=== PATIENT | male | born 1990 | race Caucasian/White ===

== ENCOUNTER 2018-10-04 12:09 | Emergency (ER) | payer MEDICARE, MEDICAID ==
[~2018-10-04] VITALS: Ht 162.6 cm; Wt 81.0 kg
[~2018-10-04 12:09] MED LIST: DIPH50CA4 PO; HALO5TAB PO
--- NOTE | 2018-10-04 12:50 | NUR ---
MOTHER STATES IN TRIAGE ASSESSMENT THAT THIS MORNING PT REPORTED THAT HE DIDN'T WANT TO LIVE ANYMORE WITH HIS HEALTH THE WAY THAT IT IS.
[2018-10-04] MEDS ORDERED: LORazepam 2 mg/ml vial IV ONE (12:55)
[2018-10-04 12:56] LABS: BASOPHILS % (AUTO) 0.5 % (0-1); EOSINOPHILS # (AUTO) 0.1 X10'3 (0-0.9); EOSINOPHILS % (AUTO) 0.8 % (0-6); HEMATOCRIT 45.2 % (42.0-52.0); HEMOGLOBIN 15.6 g/dl (14.0-17.9); LYMPHOCYTES # (AUTO) 1.7 X10'3 (1.1-4.8); LYMPHOCYTES % (AUTO) 16.2 % (21-51); MEAN CORPUSCULAR HEMOGLOBIN 30.2 PG (27.0-31.0); MEAN CORPUSCULAR HGB CONC 34.5 g/dL (33.0-36.5); MEAN CORPUSCULAR VOLUME 87.3 FL (78-98); MEAN PLATELET VOLUME 8.1 FL (7.4-10.4); MONOCYTES # (AUTO) 0.5 X10'3 (0-0.9); MONOCYTES % (AUTO) 4.8 % (2-12); NEUTROPHILS # (AUTO) 8.4 X10'3 (1.8-7.7); NEUTROPHILS % (AUTO) 77.7 % (42-75); PLATELET COUNT 319 X10'3 (140-440); RED BLOOD COUNT 5.17 X10'6 (4.70-6.10); WHITE BLOOD COUNT 10.7 X10'3 (4.5-11.0)
[2018-10-04 13:14] LABS: ALANINE AMINOTRANSFERASE 102 U/L (12-78); ALBUMIN 3.9 G/DL (3.4-5.0); ALKALINE PHOSPHATASE 135 IU/L (46-116); ANION GAP 10 (8-16); ASPARTATE AMINO TRANSFERASE 24 U/L (10-37); BILIRUBIN,TOTAL 0.4 MG/DL (0.1-1.0); BLOOD UREA NITROGEN 10 MG/DL (7-18); CALCIUM 9.2 MG/DL (8.5-10.1); CHLORIDE 103 MMOL/L (99-107); CREATININE 0.77 MG/DL (0.60-1.10); ETHANOL < 0.010 GM/DL (0.0-0.010); GLUCOSE 101 MG/DL (70-104); POTASSIUM 3.8 MMOL/L (3.5-5.1); SODIUM 138 MMOL/L (135-145); TOTAL PROTEIN 7.9 G/DL (6.4-8.2); eGFR > 90 ML/MIN
--- NOTE | 2018-10-04 14:33 | NUR ---
MOTHER AT BEDSIDE, PER MOTHER PT IS FEELING LOT BETTER THAN BEFORE ,PT TALKING AND CALM ,NO TREMORS OR STIFFINESS NOTED, PER PT ATIVAN HELPED HIM,PT WAS NOT ABLE TO SLEEP LAST NIGHT THAT WHY WAS NEYMAR RESTLESS PER MOTHER ,NOW RELAXED.
[2018-10-04 14:36] VITALS: BP 128/83
[2018-10-04 15:11] LABS: URINE AMPHETAMINE SCREEN NEGATIVE (Neg); URINE BARBITUATE SCREEN NEGATIVE (Neg); URINE BENZODIAZEPINES SCREEN NEGATIVE (Neg); URINE CANNABINOID SCREEN POSITIVE (Neg); URINE COCAINE SCREEN NEGATIVE (Neg); URINE METHADONE SCREEN NEGATIVE (Neg); URINE OPIATE SCREEN NEGATIVE (Neg); URINE PHENCYCLIDINE SCREEN NEGATIVE (Neg)
== END 2018-10-04 15:35 | disposition home or self-care (01) ==
LOC: ER 12:09
DX: R45.851 Suicidal ideations (principal); R56.9 Unspecified convulsions; Z88.0 Allergy status to penicillin; Z79.899 Other long term (current) drug therapy
CPT/HCPCS: 36415; 80053; 80305; 80320; 85025; 96374; 99284; J2060

== ENCOUNTER 2018-10-04 15:13 | Inpatient (IN) | payer MEDICARE, MEDICAID ==
[~2018-10-04] VITALS: Ht 162.6 cm; Wt 83.9 kg
[~2018-10-04 15:13] MED LIST changes: +DIPH50CA39 PO; -DIPH50CA4 PO
--- NOTE | 2018-10-04 17:00 | NUR ---
ADMIT NOTE Patient presented to the ER with C/O suicidal thoughts. Pt had recent hospitalization at [facility] for 5 days. Pt admitted on voluntary status for DTS. Pt's belongings inventoried, checked for safety, 2 RN skin assessment completed. No TB test needed, as was completed recently. Pt already oriented to unit.
[2018-10-04 17:15] VITALS: BP 132/92
[2018-10-04] MEDS ORDERED: hydrOXYzine 25 MG tablet PO PRN (17:35)
[2018-10-04] MEDS ORDERED: loperamide 2mg capsule PO PRN (17:35)
[2018-10-04] MEDS ORDERED: tuberculin, purif. prot. deriv. 5 units/0.1ml ID ONE (17:35)
[2018-10-04] MEDS ORDERED: magnesium hydroxide 30ml (MOM) UD suspension PO PRN (17:35)
[2018-10-04] MEDS ORDERED: LORazepam 1 MG tablet PO PRN (17:35)
[2018-10-04] MEDS ORDERED: mag hydrox/Alum hydrox/simeth 30ml oral suspension PO PRN (17:35)
[2018-10-04] MEDS ORDERED: acetaminophen 325mg tablet PO PRN ×2 (17:35)
--- NOTE | 2018-10-04 17:40 | NUR ---
Patient ate dinner. Visits others in the community room.
[2018-10-04 20:00] VITALS: BP 135/98
--- NOTE | 2018-10-04 21:00 | NUR ---
Patient is cooperative with staff. He went to patio with other patients and ate snacks. There was social interaction between this patient and others.
--- NOTE | 2018-10-05 02:07 | NUR ---
Nursing Progress Note:[] Legal hold: DTS/VOL Client on voluntary/involuntary status for DTS Report received from STEPHANIE Rahman, with use of SBAR. Why are they here: Suicidal Ideation, no plan. Depression. Assessment: What has happened this shift: This patient is ambulatory following shift change. When interviewed in hi room he tells this typewriter repairer "I'm having weird pseudo convulsions, like my muscles are tense all over, it's not real." Patient describes coming home from his last Behavioral Health admit. "I had a complete breakdown when I got home, I wasn't ready to go home." The patient denies hallucinations, he does admit that he thought he saw his older brother here, (his brother is in longterm,) but it turned out to be someone from the pharmacy. This patient exhibits anxiety. His affect is flat. He admits to minor depression, suicidal ideation is present without a plan. Patient states he would like sleep medications. The patient is advised that he is in a safe place. Q15 minute rounding will be done for patient safety. S/I, H/I: Intermittent S/I, no plan. Denies H/I. A/VH: Believes he saw his brother here until he realized it was someone from the pharmacy. Sleep: Patient states not sleeping well. ADL's: Independent. Group attendance: Not on nights. Were med's taken: Patient is medication compliant. Any med S/E: None. Mental Status Exam Appearance: Disheveled. Eye contact: Direct. Behavior: Friendly and cooperative. Speech: Normal rate and tone. Mood: Depression and anxiety. Affect: Blunted Thought process: Coherent Thought Content: S/I at times. Cognition: Poor Insight: Poor Judgment:Poor Interventions: PRN's used: Ativan at 2345 hours. Therapeutic interventions: Restraints/seclusion/emergency medication:None Justification of Continued Inpatient Treatment:Suicidal Ideation, Danger to self.
--- NOTE | 2018-10-05 03:28 | NUR ---
Patient is awake and agitated. He paces hallways and exhibits rapid speech. Patient states he is allergic to benadryl but needs something else to sleep. Patient also demands a meal. Patient was advised by this proposal writer that the doctor would be called to request another sleep medication. He was also told that meals are not offered at this hour. Patient told this proposal writer "fuck you then!!" He then stormed off. Addendum: 10/05/18 at 0332 by Jamal Maldonado RN This was an incorrect documentation on this patient. It was meant for another patient. Please disregard.
[2018-10-05 07:43] VITALS: BP 122/75
[2018-10-05 08:44] LABS: CHOL/HDL RATIO 3.1 (0.00-4.99); CHOLESTEROL 88 MG/DL (0-200); HDL CHOLESTEROL 28 MG/DL (35-60); LDL CHOLESTEROL 39 MG/DL (50-100); TRIGLYCERIDES 131 MG/DL (20-135)
[2018-10-05] MEDS ORDERED: hydrOXYzine 25 MG tablet PO PRN (12:10)
--- NOTE | 2018-10-05 17:07 | NUR ---
Nursing Progress Note: Legal hold: DTS/VOL Client on voluntary/involuntary status for DTS Report received from Deanne Lee RN, with use of SBAR. Why are they here: Suicidal Ideation, no plan. Depression. Assessment: What has happened this shift: Patient up in visible on the unit. Patient spent much of the day pacing. Patient did attend meals and both groups. Patients mother visited this morning and he was happy to see her and they visited well until visiting hours were over. Mother concerned related to medication compliance when patient gets home. She did state that she discussed this with Dr Garrett. In the morning patient complained of feeling like rotting flesh all night he said he felt like pain was all over his body and that it may be from detoxing from things. Patient did seem to be happier after his mother visited and remain visible on the unit the rest of the day. Patient currently denies suicidal thoughts and says he feels his depression is about the same. He says he feel safe here. S/I, H/I: Intermittent S/I, no plan. Denies H/I. A/VH: Believes he saw his brother here until he realized it was someone from the pharmacy. Sleep: Patient states not sleeping well. ADL's: Independent. Group attendance: Not on nights. Were med's taken: Patient is medication compliant. Any med S/E: None. Mental Status Exam Appearance: Disheveled. Eye contact: Direct. Behavior: Friendly and cooperative. Speech: Normal rate and tone. Mood: Depression and anxiety. Affect: Blunted Thought process: Coherent Thought Content: S/I at times. Cognition: Poor Insight: Poor Judgment:Poor Interventions: PRN's used: Therapeutic interventions: Restraints/seclusion/emergency medication:None Justification of Continued Inpatient Treatment:Suicidal Ideation, Danger to self.
[2018-10-05 20:00] VITALS: BP 127/86
[2018-10-05] MEDS: LORazepam 1 MG tablet PO SCH (21:00)
--- NOTE | 2018-10-06 00:56 | NUR ---
Nursing Progress Note: Legal hold: DTS/VOL Client on voluntary/involuntary status for DTS Report received from STEPHANIE Rahman, with use of SBAR. Why are they here: Suicidal Ideation, no plan. Depression. Assessment: What has happened this shift: This patient is pacing the halls after shift change. He is awake and well oriented. He tells this lead technical writer "I'm feeling alright. Patient qualifies that statement with "I'm afraid to fall asleep, I could have a seizure or pain, I can't describe it, what I mean?" The patient is advised that we can use ativan and other medications tonight to help him be comfortable. The patient exhibits understanding and looks relieved. The patient somewhat isolates himself at times. He did join the group in the community room for ice cream. As of the time of this writing the patient is sleeping quietly. Q 15 minute rounding is being provided for patient safety. S/I, H/I: Patient denies at this time. . A/VH: Patient denies at this time. Sleep: Patient is sleeping well at the time of this writing. ADL's: Independent. Group attendance: Not on nights. Were med's taken: Patient is medication compliant. Any med S/E: None. Mental Status Exam Appearance: Disheveled. Eye contact: Direct. Behavior: Friendly and cooperative. Speech: Normal rate and tone. Mood: Depression and anxiety are waning. Affect: Blunted Thought process: Coherent Thought Content: Minor paranoia about his health. Cognition: Poor Insight: Poor Judgment:Poor Interventions: PRN's used: Therapeutic interventions: Restraints/seclusion/emergency medication:None Justification of Continued Inpatient Treatment:Suicidal Ideation, Danger to self.
[2018-10-06 08:00] VITALS: BP 130/86
--- NOTE | 2018-10-06 11:48 | NUR ---
Nursing Progress Note: Legal hold: N/A Client on voluntary status Report received from KALEIGH Weeks, with use of SBAR. Why are they here: Suicidal Ideation, no plan. Depression. Pt was recently here and discharged home on 10/03/18. He returned to the ER the next day and was readmitted for SI, pt reported he had a "complete breakdown" when he got home. Assessment: What has happened this shift: Pt stated he was having headache pain at a 4/10 before breakfast but refused prn Tylenol. Pt denies depression, anxiety, SI/HI/AH/VH though appears depressed. Pt reported not sleeping well last night though was not able to state why. Pt observed pacing in the rush or sitting in the rec room, walks around with slow measured steps and a flat facial affect, he is frequently out in the milieu though does not interact with peers, minimal interaction with staff. Pt had no scheduled am meds, per notes, psychiatrist plans to start him on an antidepressant. S/I, H/I: Pt denies A/VH: Pt denies Sleep: Slept 7 hours last night per noc shift documentation ADL's: Independent Group attendance: Yes Were med's taken: No meds scheduled or given this shift, refused prn Tylenol for headache Any med S/E: None noted or reported Mental Status Exam Appearance: Clean, dressed in scrubs Eye contact: Good Behavior: Quiet, paces in rush, sits in rec room, mostly isolative to self Speech: clear, audible, poverty of speech Mood: Apathetic Affect: Flat Thought process: linear Thought Content: poverty of thought Cognition: A/O X 4 Insight: Poor Judgment:Poor Interventions: PRN's used: None Therapeutic interventions: 1:1 assessment, encouragement to express thoughts and feelings, encouragement to attend groups, monitor for s/sx of reported somatic/psychosomatic complaints though none reported so far this shift. Restraints/seclusion/emergency medication: None Justification of Continued Inpatient Treatment: Pt was readmitted one day after recent discharge for c/o depression and SI. He has complained about bizarre somatic sensations and pseudo-convulsions. He needs stabilization and medication adjustments for increased chance of not being readmitted again once discharged.
[2018-10-06 19:57] VITALS: BP 136/94
[2018-10-06] MEDS: LORazepam 1 MG tablet PO SCH (20:37)
--- NOTE | 2018-10-07 01:20 | NUR ---
Nursing Progress Note: Legal hold: DTS/VOL Client on voluntary/involuntary status for DTS Report received from STEPHANIE Rahman, with use of SBAR. Why are they here: Suicidal Ideation, no plan. Depression. Assessment: What has happened this shift: The patient was seen in his room for 1:1 at his bedside. He reports that he came back because he wasn't ready. "I was reverting to like before I was here...No, I was beyond reverting, I needed help." The patient states that he has social anxiety, and tends to isolate himself. "I have no friends...physically...I mean I have online friends, but that's different." The patient says he knows he has problems, just not how to solve them. "I just want to try and figure out how to live a normal life with mental illness." The patient spent the evening in his room, came out for a snack, then went back to his room. S/I, H/I: Denies A/VH: Denies Sleep: Sleeping since HS med pass. ADL's: Independent. Group attendance: No groups at night. Were med's taken: Patient is medication compliant. Any med S/E: None. Mental Status Exam Appearance: Disheveled, wearing street clothes. Eye contact: Direct. Behavior: Friendly but isolative Speech: Normal rate and tone. Mood: "Pretty good now.". Affect: Blunted Thought process: Logical, linear, goal directed. Thought Content: Minor paranoia about his health. Cognition: Poor Insight: Poor Judgment:Poor Interventions: PRN's used: Therapeutic interventions: Restraints/seclusion/emergency medication:None Justification of Continued Inpatient Treatment:Suicidal Ideation, Danger to self.
[2018-10-07 08:00] VITALS: BP 123/83
--- NOTE | 2018-10-07 09:08 | NUR ---
behavioral technician is here performing EEG in pt's room.
--- NOTE | 2018-10-07 12:13 | NUR ---
Nursing Progress Note: Legal hold: N/A Client on voluntary status Report received from Jose BROWN, with use of SBAR. Why are they here: Suicidal Ideation, no plan. Depression. Pt was recently here and discharged home on 10/03/18. He returned to the ER the next day and was readmitted for SI, pt reported he had a "complete breakdown" when he got home. Assessment: What has happened this shift: Pt presented as brighter and more friendly today. He denied depression, anxiety, SI/HI/AH/VH. Pt did report having difficulty falling asleep and staying asleep. Pt went on to explain that he is a light sleeper anyway and usually sleeps with a fan on for white noise but that his sleep patterns have changed since his recent SA via OD. Pt states, "I don't know how to describe it, it's like I'm resting but my brain..." (Pt trailed off and stopped talking with a confused look on his face.) Prompted pt by asking if his brain keeps going. Pt replied, "yeah." Pt is involved in his treatment plan. He verbalized that he was to have an EEG this morning and then his psychiatrist would decide what further medication to prescribe for him which may possibly be an antidepressant. EEG was done this morning, results pending. S/I, H/I: Pt denies A/VH: Pt denies Sleep: pt reported having difficulty sleeping last night ADL's: Independent Group attendance: Yes Were med's taken: No meds scheduled, no prns given this morning. Any med S/E: None noted or reported Mental Status Exam Appearance: Clean, dressed in scrubs Eye contact: Good Behavior: Cooperative, participates in groups and unit activities, friendly with staff but minimal interaction or socialization with peers Speech: clear, audible, normal rate Mood: good Affect: blunted until spoken to then brightens Thought process: linear Thought Content: Pt focused on treatment plan, EEG this morning and medication adjustment Cognition: A/O X 4 Insight: Fair Judgment:Poor Interventions: PRN's used: None Therapeutic interventions: 1:1 assessment, establishment of rapport, therapeutic conversation, discussion of plan of care, positive reinforcement, Q 15 min safety checks Restraints/seclusion/emergency medication: None Justification of Continued Inpatient Treatment: Pt was readmitted one day after recent discharge for c/o depression and SI. He has complained about bizarre somatic sensations and pseudo-convulsions. He needs stabilization and medication adjustments for increased chance of not being readmitted again once discharged. Addendum: 10/07/18 at 1500 by Brittany "Timo" Woodman BROWN Pt reported not feeling well around 1445 during afternoon group. He states he got dizzy and felt like he was going to pass out. He returned to his room to lie down. VSS.
[2018-10-07 14:56] VITALS: BP 128/79
[2018-10-07] MEDS ORDERED: sertraline 25mg tablet PO ONE (18:00)
[2018-10-07] MEDS: LORazepam 1 MG tablet PO SCH (20:26)
[2018-10-07 20:38] VITALS: BP 115/78
--- NOTE | 2018-10-08 00:28 | NUR ---
Nursing Progress Note: Legal hold: DTS/VOL Client on voluntary status for DTS Report received from STEPHANIE Rahman, with use of SBAR. Why are they here: Suicidal Ideation, no plan. Depression. Assessment: What has happened this shift: The patient was seen in his room at bedside for 1:1. He reports that he had an EEG today, but will get results tomorrow. He says he will accept any recommendations, possibly a mood stabilizer. He also reports that he started Zoloft today. "I don't know if it's related, but I had a strange occurrence in art group today. I had a bout of dizziness, but it went away." The patient says that things are going well, and his mood is "pretty good." He had a visit from his mother that appeared to go well. He does continue to isolate himself, but is coming out of his room more. He just doesn't interact with others. The patient was compliant with medication after his mother left, then went to bed. He continues to sleep. S/I, H/I: Denies A/VH: Denies Sleep: Sleeping since HS med pass. ADL's: Independent. Group attendance: No groups at night. Were med's taken: Patient is medication compliant. Any med S/E: None. Mental Status Exam Appearance: Disheveled, short young man wearing street clothes. Eye contact: Direct. Behavior: Friendly but isolative Speech: Normal rate and tone. Mood: "Pretty good." Affect: Blunted Thought process: Logical, linear, goal directed. Thought Content: Minor paranoia about his health. Cognition: Poor Insight: Poor Judgment:Poor Interventions: PRN's used: Therapeutic interventions: 1:1 assessment, establishment of rapport, therapeutic conversation, discussion of plan of care, positive reinforcement, Q 15 min safety checks Restraints/seclusion/emergency medication: None Justification of Continued Inpatient Treatment: Pt was readmitted one day after recent discharge for c/o depression and SI. He has complained about bizarre somatic sensations and pseudo-convulsions. He needs stabilization and medication adjustments for increased chance of not being readmitted again once discharged.
[2018-10-08] MEDS: sertraline 50mg tablet PO SCH (07:20)
[2018-10-08 08:14] VITALS: BP 115/85
--- NOTE | 2018-10-08 15:50 | NUR ---
Nursing Progress Note: [place] Legal hold: DTS/VOL Client on voluntary status for DTS Report received from STEPHANIE Rahman, with use of SBAR. Why are they here: Suicidal Ideation, no plan. Depression. Assessment: What has happened this shift: Patient observed in hallway at shift change. States minimal anxiety, compliant with med pass. 1:1 physical and MH assessment completed. Had a nice visit with his mother prior to group. Remained isolated most of day. Did attend groups. S/I, H/I: Denies A/VH: Denies Sleep: Sleeping since HS med pass. ADL's: Independent. Group attendance: Yes Were med's taken: Patient is medication compliant. Any med S/E: None. Mental Status Exam Appearance: Disheveled, short young man wearing street clothes. Eye contact: Direct. Behavior: Friendly but isolative Speech: Normal rate and tone. Mood: "Pretty good." Affect: Blunted Thought process: Logical, linear, goal directed. Thought Content: Minor paranoia about his health. Cognition: Poor Insight: Poor Judgment:Poor Interventions: PRN's used: Therapeutic interventions: 1:1 assessment, establishment of rapport, therapeutic conversation, discussion of plan of care, positive reinforcement, Q 15 min safety checks Restraints/seclusion/emergency medication: None Justification of Continued Inpatient Treatment: Pt was readmitted one day after recent discharge for c/o depression and SI. He has complained about bizarre somatic sensations and pseudo-convulsions. He needs stabilization and medication adjustments for increased chance of not being readmitted again once discharged.
[2018-10-08] MEDS: LORazepam 1 MG tablet PO SCH (20:23)
[2018-10-08 20:49] VITALS: BP 123/84
--- NOTE | 2018-10-09 00:32 | NUR ---
Nursing Progress Note: Legal hold: DTS/VOL Client on voluntary status for DTS Report received from STEPHANIE Rahman, with use of SBAR. Why are they here: Suicidal Ideation, no plan. Depression. Assessment: What has happened this shift: The patient was seen in his room at bedside for 1:1. He reports having a "so-so" day that was spent in his room. "I tried to do groups, but I was feeling antisocial...not antisocial, but I can't explain...I just didn't feel like being around people today." The patient got his EEG results today, but did not talk about it. The patient made no c/o anxiety, and remained isolated to his room all night. S/I, H/I: Denies A/VH: Denies Sleep: Sleeping since HS med pass. ADL's: Independent. Group attendance: No groups at night. Were med's taken: Patient is medication compliant. Any med S/E: None. Mental Status Exam Appearance: Disheveled, short young man wearing street clothes. Eye contact: Direct. Behavior: Friendly but isolative Speech: Normal rate and tone. Mood: "So-so." Affect: Blunted Thought process: Logical, linear, goal directed. Thought Content: Minor paranoia about his health. Cognition: Poor Insight: Poor Judgment:Poor Interventions: PRN's used: Therapeutic interventions: 1:1 assessment, establishment of rapport, therapeutic conversation, discussion of plan of care, positive reinforcement, Q 15 min safety checks Restraints/seclusion/emergency medication: None Justification of Continued Inpatient Treatment: Pt was readmitted one day after recent discharge for c/o depression and SI. He has complained about bizarre somatic sensations and pseudo-convulsions. He needs stabilization and medication adjustments for increased chance of not being readmitted again once discharged.
[2018-10-09 07:31] VITALS: BP 127/90
[2018-10-09] MEDS: sertraline 50mg tablet PO SCH (08:05)
--- NOTE | 2018-10-09 11:44 | NUR ---
Nursing Progress Note: Legal hold: N/A Client on voluntary status Report received from Chika BROWN, with use of SBAR. Why are they here: Suicidal Ideation, no plan. Depression. Pt was recently here and discharged home on 10/03/18. He returned to the ER the next day and was readmitted for SI, pt reported he had a "complete breakdown" when he got home. Assessment: What has happened this shift: Pt up for breakfast. Pt cooperative with scheduled Zoloft, no adverse effects reported. Pt denied depression, anxiety, SI/HI/AH/VH. When asked pt if he had been having any s/sx of seizure disorder he stated that he felt "funny" last night. Asked him to describe what he meant by feeling funny. Pt paused, appeared to be searching for the right words but then gave up and stated, "I don't know." Asked him if he was having any body movements he could not control or if he seemed to have lost track of time. Pt shook his head, "no" and continued to be unable to elaborate on how he felt funny. Pt is aware of EEG results and of his psychiatrist's plan to start him on an antiepileptic which may also help with mood, possibly Trileptal. He is agreeable to staying here while meds being adjusted. S/I, H/I: Pt denies A/VH: Pt denies Sleep: Slept 7.75 hours per noc shift report ADL's: Independent Group attendance: Yes Were med's taken: Yes Any med S/E: None noted or reported Mental Status Exam Appearance: Clean, wears glasses, dressed in clean scrubs Eye contact: Good Behavior: Calm, cooperative, quiet, isolative to self Speech: clear, audible, normal rate Mood: Denies alteration in mood Affect: blunted until spoken to then brightens Thought process: linear Thought Content: Pt agreeable to staying longer for further medication adjustment and monitoring. Cognition: A/O X 4 Insight: Fair Judgment: Fair Interventions: PRN's used: None Therapeutic interventions: 1:1 assessment, therapeutic conversation, discussion of plan of care, encouragement to attend groups, positive reinforcement, Q 15 min safety checks Restraints/seclusion/emergency medication: None Justification of Continued Inpatient Treatment: Pt was readmitted one day after recent discharge for c/o depression and SI. He has complained about bizarre somatic sensations and pseudo-convulsions, his EEG may be indicative of some seizure activity. He needs medication adjustments for stabilization and increased chance of not being readmitted again once discharged.
--- NOTE | 2018-10-09 11:49 | NUR ---
Initial: Pt admit w/ depression PO 100% regular meals meeting needs. LBM 10/09. No nutrition concerns at this time. Addendum: 10/09/18 at [address] Amended: Links added.
[2018-10-09 20:00] VITALS: BP 125/77
[2018-10-09] MEDS: LORazepam 1 MG tablet PO SCH (21:15)
[2018-10-09] MEDS: oxcarbazepine 150mg tablet PO SCH (21:15)
--- NOTE | 2018-10-10 03:18 | NUR ---
Nursing Progress Note: Legal hold: Voluntary Client on voluntary DTS Report received from nurse with use of SBAR: STEPHANIE Fuentes Why are they here: Pt. readmitted after reporting suicidal ideation, no plan, and depression. Pt was recently here for a suicide attempt, ingesting alcohol and butane, and discharged home on 10/03/18. He returned to the ER the next day and reported he had a "complete breakdown" when he got home. Pt. also may have had some seizure activity. Assessment What has happened this shift: Pt. up in the Group Room at the beginning of the shift with a visitor, visit appeared to go well. However, following the visit, pt. retreats to his own room and presents as withdrawn and guarded. 1:1 completed at bedside, pt. is A&O X3, not to which hospital he is at. He denies S/I, and states that his depression is a little better, "I am still working on it." Pt's speech is soft, some latency in response, and he responds only minimally to questions. He apologizes to this keno writer / runner during the assessment, states, "Sorry, I guess I am just weird." This keno writer / runner provides positive encouragement to pt, and he reports content. No s/s of seizure activity this shift, will continue to monitor. S/I, H/I: Denies A/VH: Denies Sleep: Appears to be sleeping well, pt. reports he is unsure of how well he sleeps ADL's: Requires encouragement from staff. Group attendance: Pt. reports he attends groups, and "Tries to participate." Were meds taken: Yes Any med S/E: No Mental Status Exam Appearance: Neat and appropriately dressed in hospital attire Eye contact: Fair Behavior: Cooperative, guarded, and withdrawn Speech: Pt's speech is soft, some latency in response, and he responds only minimally to questions Mood: Depressed, apologetic Affect: Flat Thought process: Poverty of thought and blocking Thought Content: Preoccupation with depressed mood and anxiety Cognition: A&O x3 (not to hospital) Insight: Poor Judgment: Fair Interventions PRN's used: None Therapeutic interventions: Introduced self and established rapport, maintained a safe and therapeutic environment, ensured contract for safety, observed for changes in behavior and need for intervention, encouraged independent performance of ADLs, provided positive encouragement, and maintained Q 15 min safety checks. Restraints/seclusion/emergency medication: N/A Justification of Continued Inpatient Treatment: Pt. continues to require stabilization, medication adjustments, and a safe and therapeutic environment.
[2018-10-10] MEDS: oxcarbazepine 150mg tablet PO SCH ×2 (07:22→20:53)
[2018-10-10] MEDS: sertraline 50mg tablet PO SCH (07:22)
[2018-10-10 09:20] VITALS: BP 131/81
--- NOTE | 2018-10-10 16:57 | NUR ---
Nursing Progress Note: Legal hold: N/A Client on voluntary status Report received from Chika BROWN, with use of SBAR. Why are they here: Suicidal Ideation, no plan. Depression. Pt was recently here and discharged home on 10/03/18. He returned to the ER the next day and was readmitted for SI, pt reported he had a "complete breakdown" when he got home. Assessment: What has happened this shift: Received Pt sleeping in bed w/o distress at change of shift. Pt up for breakfast. Pt cooperative with AM meds and no adverse effects reported. Pt denied depression, anxiety, SI/HI/AH/VH. He apologized for his behavior the last time he was here. Did not report any funny feelings, as he did yesterday. Isolates to room and occasionally walks the halls. Attends groups and meals and tolerates being around others but does not appear to be comfortable socially. S/I, H/I: Pt denies A/VH: Pt denies Sleep: Appeared to nap at times ADL's: Independent Group attendance: Yes Were med's taken: Yes Any med S/E: None noted or reported Mental Status Exam Appearance: Clean, wears glasses, dressed in clean scrubs Eye contact: Good Behavior: Calm, cooperative, quiet, isolative to self Speech: clear, audible, normal rate Mood: Denies alteration in mood Affect: blunted until spoken to then brightens Thought process: linear Thought Content: Pt agreeable to staying longer for further medication adjustment and monitoring. Cognition: A/O X 4 Insight: Fair Judgment: Fair Interventions: PRN's used: None Therapeutic interventions: 1:1 assessment, therapeutic conversation, discussion of plan of care, encouragement to attend groups, positive reinforcement, Q 15 min safety checks Restraints/seclusion/emergency medication: None Justification of Continued Inpatient Treatment: Pt was readmitted one day after recent discharge for c/o depression and SI. He has complained about bizarre somatic sensations and pseudo-convulsions, his EEG may be indicative of some seizure activity. He needs medication adjustments for stabilization and increased chance of not being readmitted again once discharged.
[2018-10-10 19:49] VITALS: BP 129/80
[2018-10-10] MEDS: LORazepam 1 MG tablet PO SCH (20:53)
--- NOTE | 2018-10-10 23:00 | NUR ---
Nursing Progress Note: Legal hold: Voluntary Client on voluntary DTS Report received from nurse with use of SBAR: STEPHANIE Hilton Why are they here: Pt. readmitted after reporting suicidal ideation, no plan, and depression. Pt was recently here for a suicide attempt, ingesting alcohol and butane, and discharged home on 10/03/18. He returned to the ER the next day and reported he had a "complete breakdown" when he got home. Pt. also may have had some seizure activity. Assessment What has happened this shift: Pt. up in the Group Room at the beginning of the shift, then isolating in his room for the remainder of the shift. 1:1 completed at bedside, pt. continues to deny S/I, and states that his depression is a little better. He feels that the medications are helping, however they are causing him more drowsiness, will endorse to AM shift and continue to monitor. Pt's continues to respond minimally to questions and has a flat affect, when this ad copy writer questioned pt. in regard to this, pt. admits that he does not like social situations, both in groups and 1:1. He also states, "The medications make me feel robotic." This ad copy writer again provided positive encouragement to pt, and he reports that he has been working on cognitive behavioral therapy with Dr. Garrett. No s/s of seizure activity this shift, will continue to monitor. S/I, H/I: Denies A/VH: Denies Sleep: Reports he has been sleeping well ADL's: Requires encouragement from staff. Group attendance: Pt. reports he attends groups, and "Tries to participate," but admits that he does not like social settings. Were meds taken: Yes Any med S/E: Increased fatigue and feeling, "Robotic." Mental Status Exam Appearance: Neat and appropriately dressed in hospital attire Eye contact: Fair Behavior: Cooperative, guarded, and withdrawn Speech: Pt's speech is soft, some latency in response, and he responds only minimally to questions Mood: Depressed, slightly anxious Affect: Flat Thought process: Poverty of thought and blocking Thought Content: Preoccupation with depressed mood and social anxiety Cognition: A&O Insight: Poor to fair Judgment: Fair Interventions PRN's used: None Therapeutic interventions: Maintained a safe and therapeutic environment, ensured contract for safety, observed for changes in behavior and need for intervention, encouraged independent performance of ADLs, provided positive encouragement, and maintained Q 15 min safety checks. Restraints/seclusion/emergency medication: N/A Justification of Continued Inpatient Treatment: Pt. continues to require stabilization, medication adjustments, and a safe and therapeutic environment.
[2018-10-11 08:09] VITALS: BP 125/88
[2018-10-11] MEDS: oxcarbazepine 150mg tablet PO SCH ×2 (08:28→21:20)
[2018-10-11] MEDS: sertraline 50mg tablet PO SCH (08:28)
--- NOTE | 2018-10-11 17:42 | NUR ---
Nursing Progress Note: Legal hold: N/A Client on voluntary status Report received from KALEIGH Szymanski with use of SBAR. Why are they here: Suicidal Ideation, no plan. Depression. Pt was recently here and discharged home on 10/03/18. He returned to the ER the next day and was readmitted for SI, pt reported he had a "complete breakdown" when he got home. Assessment: What has happened this shift: Pt up and smiling pacing the halls. He is quiet, calm and cooperative. He denies SI today. He denies A/H. Isolates to room. S/I, H/I: Pt denies A/VH: Pt denies Sleep: Appeared to nap at times ADL's: Independent Group attendance: Yes Were med's taken: Yes Any med S/E: None noted or reported Mental Status Exam Appearance: Clean, well groomed Eye contact: Good Behavior: Calm, cooperative, quiet Speech: clear, normal rate and rhythm Mood: Calm Affect: blunted until spoken to then brightens Thought process: linear Thought Content: Pt agreeable to staying longer for further medication adjustment and monitoring. Cognition: A/O X 4 Insight: Fair Judgment: Fair Interventions: PRN's used: None Therapeutic interventions: 1:1 assessment, provided therapeutic communication with active listening, medication administration/monitoring/education, encouragement to perform self care/personal hygiene and attend groups, Q 15 min safety checks. Restraints/seclusion/emergency medication: None Justification of Continued Inpatient Treatment: Pt was readmitted one day after recent discharge for c/o depression and SI. He has complained about bizarre somatic sensations and pseudo-convulsions, his EEG may be indicative of some seizure activity. He needs medication adjustments for stabilization and increased chance of not being readmitted again once discharged.
[2018-10-11 20:00] VITALS: BP 117/84
[2018-10-11] MEDS: LORazepam 1 MG tablet PO SCH (21:19)
--- NOTE | 2018-10-11 23:23 | NUR ---
Nursing Progress Note: Legal hold: Voluntary Client on voluntary DTS Report received from nurse with use of SBAR: STEPHANIE Hilton Why are they here: Pt. readmitted after reporting suicidal ideation, no plan, and depression. Pt was recently here for a suicide attempt, ingesting alcohol and butane, and discharged home on 10/03/18. He returned to the ER the next day and reported he had a "complete breakdown" when he got home. Pt. also may have had some seizure activity. Assessment What has happened this shift: Pt. up and visible on the unit throughout most of the shift, smiling and interacting minimally with staff. He later attends HS snack on the outside patio area. 1:1 completed at bedside, pt. continues to be cooperative and guarded with conversation, however presents as less withdrawn. He continues to deny S/I, and states, "My mood is pretty good." No c/o increased drowsiness from medications this shift, will continue to monitor. This designer writer provided positive reinforcement to pt. r/t being more active on the unit, pt. smiled and reported content. No s/s of seizure activity this shift, will continue to monitor. S/I, H/I: Denies A/VH: Denies Sleep: Reports he has been sleeping well ADL's: Requires some encouragement from staff. Group attendance: Pt. attended groups today Were meds taken: Yes Any med S/E: None Mental Status Exam Appearance: Neat and appropriately dressed in hospital attire Eye contact: Fair Behavior: Cooperative and guarded with conversation, however presents as less withdrawn Speech: Pt's speech is soft, some latency in response, and he responds only minimally to questions Mood: Presents as more animated, however anxious at times and guarded Affect: Flat, however animates with conversation Thought process: Poverty of thought and blocking Thought Content: Preoccupation with depressed mood and social anxiety Cognition: A&O Insight: Poor to fair Judgment: Fair Interventions PRN's used: None Therapeutic interventions: Maintained a safe and therapeutic environment, ensured contract for safety, observed for changes in behavior and need for intervention, encouraged independent performance of ADLs, provided positive encouragement, and maintained Q 15 min safety checks. Restraints/seclusion/emergency medication: N/A Justification of Continued Inpatient Treatment: Pt. continues to require stabilization, medication adjustments, and a safe and therapeutic environment.
[2018-10-12 08:00] VITALS: BP 124/84
[2018-10-12] MEDS: sertraline 25mg tablet PO SCH (08:16)
[2018-10-12] MEDS: oxcarbazepine 150mg tablet PO SCH ×2 (08:17→20:43)
--- NOTE | 2018-10-12 15:04 | NUR ---
Nursing Progress Note: Legal hold: N/A Client on voluntary status Report received from Robert BROWN, with use of SBAR. Why are they here: Suicidal Ideation, no plan. Depression. Pt was recently here and discharged home on 10/03/18. He returned to the ER the next day and was readmitted for SI, pt reported he had a "complete breakdown" when he got home. Assessment: What has happened this shift: Received Pt sleeping in bed w/o distress at change of shift. Pt awoke for breakfast and took AM meds w/o issue and no adverse effects reported. Pt denied depression, anxiety, SI/HI/AH/VH. He attended groups and continued to isolates to room. Spent more time today walking the halls. Attended meals and tolerated being around others, yet continues to not be comfortable socially. Spoke socially with this nurse and able to laugh. Bright affect when approached. S/I, H/I: Pt denies A/VH: Pt denies Sleep: Appeared to nap at times ADL's: Independent Group attendance: Yes Were med's taken: Yes Any med S/E: None noted or reported Mental Status Exam Appearance: Clean, wears glasses, dressed in clean scrubs Eye contact: Good Behavior: Calm, cooperative, quiet, isolative to self Speech: clear, audible, normal rate Mood: Denies alteration in mood Affect: blunted until spoken to then brightens Thought process: linear Thought Content: Pt agreeable to staying longer for further medication adjustment and monitoring. Cognition: A/O X 4 Insight: Fair Judgment: Fair Interventions: PRN's used: None Therapeutic interventions: 1:1 assessment, therapeutic conversation, discussion of plan of care, encouragement to attend groups, positive reinforcement, Q 15 min safety checks Restraints/seclusion/emergency medication: None Justification of Continued Inpatient Treatment: Pt was readmitted one day after recent discharge for c/o depression and SI. He has complained about bizarre somatic sensations and pseudo-convulsions, his EEG may be indicative of some seizure activity. He needs medication adjustments for stabilization and increased chance of not being readmitted again once discharged.
[2018-10-12] MEDS: LORazepam 1 MG tablet PO SCH (20:43)
--- NOTE | 2018-10-13 04:48 | NUR ---
Nursing Progress Note: Legal hold: N/A Client on voluntary status Report received from STEPHANIE Hilton with use of SBAR. Why are they here: Suicidal Ideation, no plan. Depression. Pt was recently here and discharged home on 10/03/18. He returned to the ER the next day and was readmitted for SI, pt reported he had a "complete breakdown" when he got home. Assessment: What has happened this shift: Patient ambulates hallways and socializes with other patients in the day room. Patient has a brightened mood, he smiles at staff and other patients. This patient states he no longer feel suicidal. He denies H/I or hallucinations. The patient states that he is "excited about my future. I''ve been doing pretty good the past couple of days." Patient states he is concerned as his family is all out of work. "We area poor family. We are thinking about starting a home business." The patient states how he previously researched killing himself on internet suicide sites. He states he has no desire to do the same now. The patient is advised that he is in a safe place. Q15 minute rounding will be continued for patient safety. S/I, H/I: Pt denies A/VH: Pt denies Sleep: Appeared to nap at times ADL's: Independent Group attendance: Yes Were med's taken: Yes Any med S/E: None noted or reported Mental Status Exam Appearance: Clean, wears glasses, dressed in clean scrubs Eye contact: Good Behavior: Calm and cooperative. Speech: Clear, audible, normal rate Mood: Denies alteration in mood Affect: blunted until spoken to then brightens Thought process: Linear Thought Content: Pt agreeable to staying longer for further medication adjustment and monitoring. Cognition: A/O X 4 Insight: Fair Judgment: Fair Interventions: PRN's used: None Therapeutic interventions: 1:1 assessment, therapeutic conversation, discussion of plan of care, encouragement to attend groups, positive reinforcement, Q 15 min safety checks Restraints/seclusion/emergency medication: None Justification of Continued Inpatient Treatment: Pt was readmitted one day after recent discharge for c/o depression and SI. He has complained about bizarre somatic sensations and pseudo-convulsions, his EEG may be indicative of some seizure activity. He needs medication adjustments for stabilization and increased chance of not being readmitted again once discharged.
[2018-10-13 07:00] VITALS: BP 116/68
[2018-10-13] MEDS: oxcarbazepine 150mg tablet PO SCH ×2 (08:03→20:36)
[2018-10-13] MEDS: sertraline 25mg tablet PO SCH (08:03)
[2018-10-13 09:07] VITALS: BP 116/68
--- NOTE | 2018-10-13 15:37 | NUR ---
Nursing Progress Note Legal hold: N/A Client on voluntary status Report received from Robert BROWN, with use of SBAR. Why are they here: Suicidal Ideation, no plan. Depression. Pt was recently here and discharged home on 10/03/18. He returned to the ER the next day and was readmitted for SI, pt reported he had a "complete breakdown" when he got home. Assessment: What has happened this shift: Patient awake for meds and breakfast. States that he is feeling anxious, but declines medication intervention. States that he does not want to take Ativan any more, and will discuss this with Dr. Garrett. States that in the past he has been addicted to Xanax and doesn't want to be on "benzo's". Paces hallways in spare time. Attends all groups, meals. Reports that provider told him that he may go home tomorrow. S/I, H/I: Pt denies A/VH: Pt denies Sleep: 8.0 hrs. NOC, napped. ADL's: Independent Group attendance: Yes Were med's taken: Yes Any med S/E: None noted or reported Mental Status Exam Appearance: Clean, wears glasses, dressed in clean scrubs Eye contact: Good Behavior: Calm, cooperative, quiet, isolative to self Speech: clear, audible, normal rate Mood: Bored. Affect: Blunted. Thought process: linear Thought Content: Pt wants to be discharged tomorrow so he can help his mom. Cognition: A/O X 4 Insight: Fair Judgment: Fair Interventions: PRN's used: None Therapeutic interventions: 1:1 assessment, therapeutic conversation, discussion of plan of care, encouragement to attend groups, positive reinforcement, Q 15 min safety checks Restraints/seclusion/emergency medication: None Justification of Continued Inpatient Treatment: Pt was readmitted one day after recent discharge for c/o depression and SI. He has complained about bizarre somatic sensations and pseudo-convulsions, his EEG may be indicative of some seizure activity. He needs medication adjustments for stabilization and increased chance of not being readmitted again once discharged.
[2018-10-13] MEDS ORDERED: hydrOXYzine 25 MG tablet PO PRN (18:40)
[2018-10-13 19:55] VITALS: BP 126/89
--- NOTE | 2018-10-14 03:13 | NUR ---
Nursing Progress Note: Legal hold: N/A Client on voluntary status Report received from STEPHANIE Hilton with use of SBAR. Why are they here: Suicidal Ideation, no plan. Depression. Pt was recently here and discharged home on 10/03/18. He returned to the ER the next day and was readmitted for SI, pt reported he had a "complete breakdown" when he got home. Assessment: What has happened this shift: Pt walks the halls smiling while he is awake. He is pleasant on approach and makes good eye contact. He said his day went, "very well" and that he is looking forward to being able to leave soon. He requests atarax before bed to help with anxiety and sleep. He is medication compliant. S/I, H/I: Pt denies A/VH: Pt denies Sleep:see sleep assessment notation ADL's: Independent Group attendance: material handler 1st shift no groups Were med's taken: Yes Any med S/E: None noted or reported Mental Status Exam Appearance: Clean, wears glasses, dressed in clean scrubs Eye contact: Good Behavior: Calm and cooperative. Speech: Clear, audible, normal rate Mood: Denies alteration in mood Affect: blunted until spoken to then brightens Thought process: Linear Thought Content: feeling ready to go home Cognition: A/O X 4 Insight: Fair Judgment: Fair Interventions: PRN's used: None Therapeutic interventions: 1:1 assessment, therapeutic conversation, discussion of plan of care, encouragement to attend groups, positive reinforcement, Q 15 min safety checks Restraints/seclusion/emergency medication: None Justification of Continued Inpatient Treatment: Pt was readmitted one day after recent discharge for c/o depression and SI. He has complained about bizarre somatic sensations and pseudo-convulsions, his EEG may be indicative of some seizure activity. He needs medication adjustments for stabilization and increased chance of not being readmitted again once discharged.
[2018-10-14 08:00] VITALS: BP 119/86
[2018-10-14] MEDS ORDERED: oxcarbazepine 150mg tablet PO SCH (08:00)
[2018-10-14] MEDS ORDERED: sertraline 25mg tablet PO SCH (08:00)
[2018-10-14] MEDS ORDERED: OXCA300O5 PO (12:02)
[2018-10-14] MEDS ORDERED: SERT100T10 PO (12:02)
[2018-10-14] MEDS ORDERED: HYDR50TA65 PO (12:02)
[2018-10-14] MEDS ORDERED: OXCA300T16 PO (13:34)
--- NOTE | 2018-10-14 14:06 | NUR ---
Discharge note: Client discharged from unit at 1403 hours today. Patient discharged home with Mother. All client valuables and belongings were returned. Follow up instructions given and patient demonstrated verbal understanding of discharge instructions. Smoking cessation was discussed but declined due to patient not being an active smoker. Client mood is bright and client understands the conditions of discharge to include, medication management and follow up appointments. Client has improved significantly during this admission.
== END 2018-10-14 14:30 | disposition home or self-care (01) | DRG 885 ==
LOC: ADULT MH 16:39
PROVIDERS: ADMIT Psychiatry & Neurology Psychiatry; ATTEND Psychiatry & Neurology Psychiatry
PROC: 4A10X4Z Monitoring of Central Nervous Electrical Activity, External Approach (ICD-10-PCS; principal; 2018-10-07)
DX: F33.2 Major depressive disorder, recurrent severe without psychotic features (principal); R45.851 Suicidal ideations; F60.9 Personality disorder, unspecified; F10.20 Alcohol dependence, uncomplicated; F19.90 Other psychoactive substance use, unspecified, uncomplicated; F15.10 Other stimulant abuse, uncomplicated; F34.1 Dysthymic disorder; F41.9 Anxiety disorder, unspecified; R56.9 Unspecified convulsions; Z88.0 Allergy status to penicillin; Z91.5 Personal history of self-harm; Z79.899 Other long term (current) drug therapy; Z81.8 Family history of other mental and behavioral disorders; T54 Toxic effect of corrosive substances; Z71.51 Drug abuse counseling and surveillance of drug abuser
CPT/HCPCS: 36415; 80053; 80061; 80305; 80320; 85025; 95816; 99284; Z7610